=== PATIENT | female | born 1955 | race Caucasian/White ===

== ENCOUNTER 2017-02-22 12:51 | Observation (INO) ==
[2017-02-22] MEDS ORDERED: Furosemide 40 MG/4 ML VIAL IVP ONE (14:01)
--- NOTE | 2017-02-22 14:05 | Emergency Department Note ---
Disposition Clinical Impression: Swelling of lower extremity Congestive heart failure Qualifiers: Congestive heart failure type: unspecified congestive heart failure type Congestive heart failure chronicity: unspecified congestive heart failure chronicity Qualified Code(s): I50.9 - Heart failure, unspecified Disposition: Admitted As Inpatient Condition: Fair Time of Disposition: 16:21 General Adult HPI - General Chief complaint: ED Shortness of Breath/Dyspnea Stated complaint: bilat leg swelling and belly distention Time Seen by Provider: 02/22/17 13:16 Source: patient, family Mode of arrival: wheelchair Limitations: no limitations Nursing Notes Reviewed: Yes Vital Signs Reviewed: Yes - History of Present Illness HPI Narrative: 62-year-old female presents for evaluation of bilateral lower ext swelling. Patient states it her legs even swollen over the past several weeks. States she has been taking Lasix 40 mg daily as directed by primary care physician. This is the swelling has worsened and become more painful. Patient also noted some bilateral redness. Denies any fevers. Also has been having some intermittent chest pressure over the past 2-3 weeks. Seizures all spontaneously but does note it is nonexertional. Reports some shortness of breath due to abdominal distention. States she has been having about a 30 pound weight gain in the past 3 months. Also notes a history of fatty liver but denies any history of cirrhosis or liver disease. Reports that she is continuing to produce urine. Denies history of hypertension or cardiac disease. Denies history of heart attacks. Denies history of congestive heart failure. States that she typically is not very active. Denies history of any ultrasound of the heart. Pain Scale: 4 - Related Data Home Medications Medication Instructions Recorded Confirmed Baclofen 20 mg PO TID PRN 02/29/16 02/22/17 Dexlansoprazole [Dexilant] 60 mg PO DAILY 02/29/16 02/22/17 Furosemide [Lasix] 40 mg PO BID 02/29/16 02/22/17 Ibuprofen [Motrin] 600 mg PO Q6H PRN 02/29/16 02/22/17 Insulin Glargine,Hum.rec.anlog 70 unit SQ BID 02/29/16 02/22/17 [Lantus Solostar] Insulin LISPRO [Humalog Kwikpen 0 unit SQ TIDWM 02/29/16 02/22/17 U-100] Linagliptin/Metformin HCl 1 tab PO BID 02/29/16 02/22/17 [Jentadueto 2.5 mg-1000 mg Tab] Losartan Potassium [Cozaar] 50 mg PO DAILY 02/29/16 02/22/17 Multivitamin [Multi-Day Vitamins] 1 tab PO DAILY 02/29/16 02/22/17 Nystatin Cream [Mycostatin Cream] 1 appl TP BID PRN 02/29/16 02/22/17 Oxycodone HCl [Oxaydo] 5 mg PO TID 02/29/16 02/22/17 Potassium Chloride [K-Tab ER] 20 meq PO DAILY 02/29/16 02/22/17 diazePAM [Valium] 5 mg PO BID PRN 02/29/16 02/22/17 hydroCHLOROthiazide 25 mg PO DAILY 02/29/16 02/22/17 [Hydrochlorothiazide] Glucagon,Human Recombinant 1 mg IJ ONCE PRN 03/28/16 02/22/17 [Glucagon Emergency Kit] FLUoxetine HCl [PROzac] 20 mg PO DAILY 02/22/17 02/22/17 Lubiprostone [Amitiza] 8 mcg PO BID 02/22/17 02/22/17 Mecobal/Levomefolat Ca/B6 Phos 1 tab PO BID 02/22/17 02/22/17 [Foltanx Tablet] Modafinil [Provigil] 100 mg PO QAM 02/22/17 02/22/17 Morphine Sulfate SR (12 HR) [MS 30 mg PO QAM 02/22/17 02/22/17 Contin] Morphine Sulfate SR (12 HR) [MS 60 mg PO QPM 02/22/17 02/22/17 Contin] buPROPion HCl [Bupropion HCl ER] 200 mg PO DAILY 02/22/17 02/22/17 Allergies Allergy/AdvReac Type Severity Reaction Status Date / Time orange Allergy Hives Verified 02/29/16 19:08 Pineapple Allergy Hives Verified 02/29/16 19:08 Sulfa (Sulfonamide Allergy Rash Verified 02/29/16 18:57 Antibiotics) wheat Allergy Rash Verified 02/29/16 19:08 All systems ED: reviewed and negative except as stated. Constitutional: Reports: as per HPI. Denies: fever Eyes: Reports: as per HPI ENT ED: Reports: as per HPI Cardiovascular: Reports: as per HPI, chest pain Respiratory: Reports: as per HPI, dyspnea Gastrointestinal: Reports: as per HPI. Denies: nausea, vomiting Genitourinary: Reports: as per HPI Musculoskeletal: Reports: as per HPI Integumentary: Reports: as per HPI Neurological: Reports: as per HPI Psychiatric: Reports: as per HPI Endocrine: Reports: as per HPI Hematological/Lymphatic: Reports: as per HPI Past Medical History - Past Medical History Medical history: Reports: diabetes, other Psychiatric history: Reports: anxiety, depression - Social History Smoking Status: Current every day smoker Smokeless Tobacco Status: No Alcohol use: Reports: none Drug use: Reports: none Physical Exam - General Limitations: no limitations General appearance: alert, in no apparent distress, obese - Head Head exam: atraumatic, normocephalic, normal inspection - Eye Eye exam: Present: normal appearance - ENT ENT exam: normal exam - Neck Neck exam: Present: normal inspection - Chest Chest inspection: Present: normal inspection, symmetric chest wall rise - Respiratory Respiratory exam: Present: other (diffusely decreased breath sounds). Absent: respiratory distress - Cardiovascular Cardiovascular exam: Present: regular rate - Abdominal Exam Abdominal exam: Present: soft, Non-Tender, distention (No fluid wave). Absent: tenderness, guarding, rebound, rigidity - Extremities Exam Extremities exam: Present: other (Bilateral to 3+ pedal edema to the midshin with erythema and chronic skin changes) - Back Exam Back exam: Present: normal inspection - Neurological Exam Neurological exam: Present: alert, oriented X3 - Skin Skin exam: Present: warm, dry, intact, normal color Course Course Narrative: Patient seen and examined. Patient will get a cardiopulmonary evaluation. Patient will skip his clavicle and her liver function as well as kidney function. Patient is chest x-ray as well as EKG and troponin. Records review shows that the patient has not had a recent echo. Concerns to this patient's more frequent developing of anginal symptoms and worsening lower leg edema. Patient would likely benefit from inpatient monitoring echo and diuresis. - Reevaluation(s) Reevaluation #1: Patient seen and examined. Patient updated on plan of care. Patient agrees with plan of care. Time: 14:59 Reevaluation #2: Patient's d-dimer was elevated. Will get CT of the chest. Patient is aware of the plan of care. Time: 15:42 Vital Signs Temperature 98.2 F 02/22/17 12:59 Pulse Rate 98 02/22/17 12:59 Respiratory Rate 18 02/22/17 12:59 Blood Pressure 171/73 02/22/17 12:59 O2 Sat by Pulse Oximetry 96 02/22/17 12:59 Temperature 98.2 F 02/22/17 12:59 Pulse Rate 98 02/22/17 12:59 Respiratory Rate 18 02/22/17 12:59 Blood Pressure 171/73 02/22/17 12:59 O2 Sat by Pulse Oximetry 96 02/22/17 12:59 Oxygen Delivery Oxygen Delivery Room Air Medical Decision Making - MDM Narrative Medical decision making narrative: 62-year-old female patient for violation of bilateral LOWER ext swelling. Patient states that her legs been more swollen. Patient only takes Lasix 3 mg daily to help control swelling. No diagnosis of congestive heart failure. Patient secondarily has been having some intermittent chest symptoms and chest pain over the past several weeks. Notes to occur nonexertional describes as a pressure. States that it was all spontaneously after a few minutes. Patient denies history of heart attacks. On exam the patient's abdomen appeared to be distended without a fluid wave. Patient did have pitting edema bilaterally with redness this is less likely bilateral cellulitis. Likely pain related to the increased pressure related to the edema in her lower legs. Patient's troponin was negative. Patient's BNP was also negative however given the chest x-ray findings and the patient's clinical exam she would benefit from further cardiopulmonary monitoring with echo, stress test, fluid diuresis. Patient did have an elevated d-dimer which prompted the CT of the chest did not show PE. Patient is agreeable with this plan of care. - Lab Data Lab results reviewed: Yes I reviewed the patient's lab results. Result diagrams: 02/22/17 14:09 02/22/17 14:09 Lab Results 02/22/17 02/22/17 02/22/17 Range/Units 14:09 14:09 14:09 WBC 7.7 (4.3-11.1) K/mcL RBC 4.16 (3.82-4.97) M/mcL Hgb 11.8 (11.5-15.4) g/dL Hct 36.8 (35.3-44.9) % MCV 88.5 (83.0-100.0) fL MCH 28.4 (28.0-33.3) pg MCHC 32.1 (31.6-35.5) g/dL RDW 16.2 H (11.5-14.5) % Plt Count 301 (140-400) K/mcL MPV 10.0 (9.4-12.4) fL Immature Gran % 1.6 (0-4) % Seg Neutrophils % 68.7 % Lymphocytes % 11.3 % Monocytes % 13.8 % Eosinophils % 3.8 % Basophils % 0.8 % Neutrophils # 5.3 (1.6-8.9) K/mcL Lymphocytes # 0.9 (0.6-4.6) K/mcL Monocytes # 1.1 (0.0-1.3) K/mcL Eosinophils # 0.3 (0.0-0.6) K/mcL Basophils # 0.1 (0.0-0.2) K/mcL PT 14.8 H (9.4-12.1) Seconds INR 1.4 D-Dimer 2201 H (0-500) ng/mLFEU Sodium 138 (136-145) mEq/L Potassium 4.0 (3.5-4.5) mEq/L Chloride 94 L (98-109) mEq/L Carbon Dioxide 35 H (19-29) mEq/L BUN 19 (7-20) mg/dL Creatinine 0.74 (0.57-1.11) mg/dL Est GFR ( Amer) > 60 (> 60) Est GFR (Non-Af Amer) > 60 (> 60) BUN/Creatinine Ratio 26 (6-26) Glucose 78 (70-99) mg/dL Calculated Osmolality 287 (280-300) Calcium 10.3 (8.6-10.8) mg/dL Total Bilirubin 0.6 (0.2-1.2) mg/dL Direct Bilirubin 0.3 (0.0-0.5) mg/dL Indirect Bilirubin 0.3 (0.0-1.2) mg/dL AST 51 H (5-34) Units/L ALT 58 H (0-55) Units/L Alkaline Phosphatase 168 H (38-126) Units/L Troponin I (0-0.03) ng/mL B-Natriuretic Peptide (0-100) pg/mL Serum Total Protein 8.0 (6.0-8.3) g/dL Albumin 3.3 L (3.5-5.0) g/dL Globulin 4.7 H (2.4-3.5) g/dL Albumin/Globulin Ratio 0.7 L (1.1-2.2) 02/22/17 02/22/17 Range/Units 14:09 14:09 WBC (4.3-11.1) K/mcL RBC (3.82-4.97) M/mcL Hgb (11.5-15.4) g/dL Hct (35.3-44.9) % MCV (83.0-100.0) fL MCH (28.0-33.3) pg MCHC (31.6-35.5) g/dL RDW (11.5-14.5) % Plt Count (140-400) K/mcL MPV (9.4-12.4) fL Immature Gran % (0-4) % Seg Neutrophils % % Lymphocytes % % Monocytes % % Eosinophils % % Basophils % % Neutrophils # (1.6-8.9) K/mcL Lymphocytes # (0.6-4.6) K/mcL Monocytes # (0.0-1.3) K/mcL Eosinophils # (0.0-0.6) K/mcL Basophils # (0.0-0.2) K/mcL PT (9.4-12.1) Seconds INR D-Dimer (0-500) ng/mLFEU Sodium (136-145) mEq/L Potassium (3.5-4.5) mEq/L Chloride (98-109) mEq/L Carbon Dioxide (19-29) mEq/L BUN (7-20) mg/dL Creatinine (0.57-1.11) mg/dL Est GFR ( Amer) (> 60) Est GFR (Non-Af Amer) (> 60) BUN/Creatinine Ratio (6-26) Glucose (70-99) mg/dL Calculated Osmolality (280-300) Calcium (8.6-10.8) mg/dL Total Bilirubin (0.2-1.2) mg/dL Direct Bilirubin (0.0-0.5) mg/dL Indirect Bilirubin (0.0-1.2) mg/dL AST (5-34) Units/L ALT (0-55) Units/L Alkaline Phosphatase (38-126) Units/L Troponin I 0.00 (0-0.03) ng/mL B-Natriuretic Peptide < 10 (0-100) pg/mL Serum Total Protein (6.0-8.3) g/dL Albumin (3.5-5.0) g/dL Globulin (2.4-3.5) g/dL Albumin/Globulin Ratio (1.1-2.2) - Radiology Data Radiology results reviewed: Yes I reviewed the patient's radiology results. Chest X-Ray 02/22/17 14:02 IMPRESSION: Findings suggest congestive heart failure D/ / Scott Maravilla MD / Scott Maravilla MD Interpreting Provider: Scott Maravilla MD - EKG Data EKG #1 EKG shows normal: sinus rhythm Rate: normal Rhythm: NSR [place]/QRS: left axis deviation Q waves: III, aVF, v1 Interpretation: no acute changes, unchanged when compared to prior tracing (date ) S.B.ALaver[place] - [email or web address] Situation: Demographics Background: Presenting Complaint Assessment: Vital Signs, Course and respsone to treatment, Patient/Family Expectation Recommendation: Barrier(s) to disposition, Recommendation based on pending studies, treatments, or consults S.B.AL[place] Report Given to: Dr. Corey Padilla Repor Time: 15:18
[2017-02-22 14:19] LABS: Basophils # 0.1 K/mcL (0.0-0.2); Basophils % 0.8 %; Eosinophils # 0.3 K/mcL (0.0-0.6); Eosinophils % 3.8 %; Hematocrit 36.8 % (35.3-44.9); Hemoglobin 11.8 g/dL (11.5-15.4); Immature Granulocytes % 1.6 % (0-4); Lymphocytes # 0.9 K/mcL (0.6-4.6); Lymphocytes % 11.3 %; Mean Corpuscular HGB Conc 32.1 g/dL (31.6-35.5); Mean Corpuscular Hemoglobin 28.4 pg (28.0-33.3); Mean Corpuscular Volume 88.5 fL (83.0-100.0); Monocytes # 1.1 K/mcL (0.0-1.3); Monocytes % 13.8 %; Neutrophils # 5.3 K/mcL (1.6-8.9); Platelet Count 301 K/mcL (140-400); Red Blood Count 4.16 M/mcL (3.82-4.97); Red Cell Distribution Width 16.2 % (11.5-14.5); Segmented Neutrophils % 68.7 %
[2017-02-22 14:25] LABS: INR 1.4; Prothrombin Time 14.8 Seconds (9.4-12.1)
[2017-02-22 14:35] LABS: Alanine Aminotransferase 58 Units/L (0-55); Albumin 3.3 g/dL (3.5-5.0); Albumin/Globulin Ratio 0.7 (1.1-2.2); Alkaline Phosphatase 168 Units/L (38-126); Aspartate Amino Transferase 51 Units/L (5-34); BUN/Creatinine Ratio 26 (6-26); Bilirubin,Direct 0.3 mg/dL (0.0-0.5); Bilirubin,Indirect 0.3 mg/dL (0.0-1.2); Bilirubin,Total 0.6 mg/dL (0.2-1.2); Blood Urea Nitrogen 19 mg/dL (7-20); Calcium 10.3 mg/dL (8.6-10.8); Carbon Dioxide 35 mEq/L (19-29); Chloride 94 mEq/L (98-109); Globulin 4.7 g/dL (2.4-3.5); Glucose 78 mg/dL (70-99); Osmolality,Calculated 287 (280-300); Sodium 138 mEq/L (136-145); eGFR For African Americans > 60 (> 60); eGFR For Non-African Americans > 60 (> 60)
--- NOTE | 2017-02-22 15:07 | Emergency Department Note ---
START Narrative - START START: I examined this patient and my medical decision-making was reviewed with the VARIETY LATHE OPERATOR/PA/Advanced Practice Nurse/Resident Physician. I agree with the documented findings, disposition and treatment plan as described except to the extent set forth below. ED attending: Patient's emergency medicine resident Dr. Miller. Please see copy of this note for H&P evaluation and management and ED disposition. We both had independent [id number] time in contact with this patient. Briefly: 62 year old female history of one year dependent edema on escalating doses of Lasix presents with 2 weeks increasing chest discomfort and dyspnea on exertion and increased swelling and erythema of her legs. Symmetrical redness no Lexmark consistent with venous stasis. Patient is getting troponin and chest x-ray. Heart scores above 3. We decided admission would be warranted. Patient is comfortable with this. Disposition pending although an admission anticipated.
[2017-02-22] MEDS ORDERED: Ondansetron ODT 4 MG TAB.RAPDIS SL PRN (17:06)
[2017-02-22] MEDS ORDERED: Naloxone 0.4 MG/ML INJ IVP PRN (17:06)
[2017-02-22] MEDS ORDERED: Acetaminophen 325 MG TABLET PO PRN (17:06)
[2017-02-22] MEDS ORDERED: diazePAM 5 MG TABLET PO PRN (17:12)
[2017-02-22] MEDS ORDERED: *HR* Dextrose 50 % in Water (Syg) 50 ML SYRINGE IVP PRN (17:19)
[2017-02-22] MEDS ORDERED: Dextrose Gel 15 GM PO PRN ×2 (17:19)
[2017-02-22] MEDS ORDERED: D5% in Water 1,000 ML IVC PRN (17:19)
--- NOTE | 2017-02-22 17:21 | Internal Med History&Physical ---
Date of Encounter: 02/22/17 Time of Encounter: 17:18 Assessment and Plan (1) Congestive heart failure Current visit: Yes Status: Acute Patient with increasing swelling of BLE as well as shortness of breath worse with activity and when laying flat over the last several days. CXR shows findings suggesting CHF. BNP negative at < 10. EKG shows no acute changes. Patient takes 40mg of lasix PO at home. Continuous cardiac exercise physiologist daily weights strict I/Os Lasix 40mg IVP BID echocardiogram. Qualifiers: Congestive heart failure type: unspecified congestive heart failure type Congestive heart failure chronicity: acute Qualified Code(s): I50.9 - Heart failure, unspecified (2) Abdominal distension Current visit: Yes Status: Acute Patient with significant abdominal distention, she feels this is contributing to her shortness of breath and poor appetite. She denies any abdominal pain vomiting or diarrhea. She reports she is having regular bowel movements. On exam, abdomen is significantly firm and distended with normal bowel sounds and is non-tender to palpation. Distention may be due to edema from CHF exacerbation, but CTA of chest noted upper abdominal lymphadenopathy. Will get complete ultrasound of the abdomen to further evaluate. (3) Type 2 diabetes mellitus Current visit: Yes Status: Acute check Hgb A1c diabetic, heart healthy diet. Patient reports she has a poor appetite lately and blood sugar on presentation only 78. Will reduce basal dose of insulin to 55u BID (takes 70u BID at home) check blood sugars ACHS Sliding Scale correction dose ACHS hypoglycemic protocol. Qualifiers: Diabetes mellitus complication status: with unspecified complications Diabetes mellitus half-way insulin use: with half-way use Qualified Code(s) : E11.8 - Type 2 diabetes mellitus with unspecified complications; Z79.4 - FDC (current) use of insulin (4) Hypertension Current visit: Yes Status: Acute Continue home doses of HCTZ and losartan. Qualifiers: Hypertension type: essential hypertension Qualified Code(s): I10 - Essential (primary) hypertension (5) Swelling of lower extremity Current visit: Yes Status: Acute BLE swelling with redness. D-dimer elevated to 2201, CTA negative for PE, will get BLE dopplers to rule out DVT. (6) DVT prophylaxis Current visit: Yes Status: Acute Lovenox 40mg SQ daily Internal Medicine - H&P: HPI Chief complaint: BLE swelling, intermittent chest pressure Admitted From: Emergency Dept Plans for Post Hospital Care: Home History of present illness: Ms. Welch is a 62 year old female with hypertension, type 2 diabetes, GERD, chronic back pain, fatty liver disease, who presented to the emergency department today with complaints of increasing bilateral lower extremity swelling, redness, shortness of breath, and intermittent chest pressure. Patient reports that she has had swelling in her bilateral lower extremities for some time now, but has noted it getting worse over the last several days. She reports her abdomen has become significantly distended, causing shortness of breath, and poor appetite. She does report that she is having regular bowel movements, and denies any nausea or vomiting or abdominal pain. She describes the chest pressure as occurring about once a week, at rest, lasting for approximately 5 minutes, in the middle of her chest radiating up to her jaw. She denies any headache, palpitations, cough, fever, dysuria. Evaluation in the emergency department included a chest x-ray which showed findings suggestive of congestive heart failure. EKG showed normal sinus rhythm with no acute changes, troponin was negative at 0.00, BNP was negative at less than 10, however patient is obese and this is perhaps unreliable, d-dimer is elevated at 2201. CTA was obtained due to the elevated d-dimer and it showed no pulmonary embolism and no acute cardiopulmonary disease. On exam, patient alert and oriented, in no acute distress. Heart has regular rate and rhythm, lungs with mild crackles in bilateral bases. Abdomen is firm and distended, with positive bowel sounds in all 4 quadrants, nontender to palpation. Bilateral lower extremities with +4 pitting edema, erythema to mid calf, nontender. Past Med Surg Social Fam HX - Past Medical History Medical history: diabetes, other Psychiatric history: anxiety, depression - Past Surgical History Surgical History: cholecystectomy, orthopedic, other (lumbar laminectomy, carpal tunnel, trigger finger, ) - Social History Smoking Status: Current every day smoker Smokeless Tobacco Status: No Alcohol use: none Drug use: none - Family History Sister Living Status: Cause of : cancer Hx Family Cancer: Yes Mother Living Status: Cause of : Lung cancer Hx Family Cancer: Yes Father Hx Family Cancer: Yes (prostate) Internal Medicine - H&P: Meds Baclofen 20 mg PO TID PRN 02/29/16 [History] Dexlansoprazole [Dexilant] 60 mg PO DAILY 02/29/16 [History] Furosemide [Lasix] 40 mg PO BID 02/29/16 [History] Ibuprofen [Motrin] 600 mg PO Q6H PRN 02/29/16 [History] Insulin Glargine,Hum.rec.anlog [Lantus Solostar] 70 unit SQ BID 02/29/16 [ History] Insulin LISPRO [Humalog Kwikpen U-100] 0 unit SQ TIDWM 02/29/16 [History] Linagliptin/Metformin HCl [Jentadueto 2.5 mg-1000 mg Tab] 1 tab PO BID 02/29/16 [History] Losartan Potassium [Cozaar] 50 mg PO DAILY 02/29/16 [History] Multivitamin [Multi-Day Vitamins] 1 tab PO DAILY 02/29/16 [History] Nystatin Cream [Mycostatin Cream] 1 appl TP BID PRN 02/29/16 [History] Oxycodone HCl [Oxaydo] 5 mg PO TID 02/29/16 [History] Potassium Chloride [K-Tab ER] 20 meq PO DAILY 02/29/16 [History] diazePAM [Valium] 5 mg PO BID PRN 02/29/16 [History] hydroCHLOROthiazide [Hydrochlorothiazide] 25 mg PO DAILY 02/29/16 [History] Glucagon,Human Recombinant [Glucagon Emergency Kit] 1 mg IJ ONCE PRN 03/28/16 [ History] FLUoxetine HCl [PROzac] 20 mg PO DAILY 02/22/17 [History] Lubiprostone [Amitiza] 8 mcg PO BID 02/22/17 [History] Mecobal/Levomefolat Ca/B6 Phos [Foltanx Tablet] 1 tab PO BID 02/22/17 [History] Modafinil [Provigil] 100 mg PO QAM 02/22/17 [History] Morphine Sulfate SR (12 HR) [MS Contin] 30 mg PO QAM 02/22/17 [History] Morphine Sulfate SR (12 HR) [MS Contin] 60 mg PO QPM 02/22/17 [History] buPROPion HCl [Bupropion HCl ER] 200 mg PO DAILY 02/22/17 [History] Allergies orange Allergy (Verified 02/29/16 19:08) Hives Pineapple Allergy (Verified 02/29/16 19:08) Hives Sulfa (Sulfonamide Antibiotics) Allergy (Verified 02/29/16 18:57) Rash wheat Allergy (Verified 02/29/16 19:08) Rash All Systems PM: A 10-system review of systems was performed and is negative for pertinent findings except as documented above in the HPI. - Constitutional Constitutional: anorexia, no chills, no fever(s), no night sweats - EENT Eyes: no change in vision, no discharge, no pain, no photophobia Ears: no ear discharge, no ear pain, no tinnitus Nose, mouth and throat: no dysphagia, no nasal discharge, no neck pain, no sore throat - Cardiovascular Cardiovascular ROS IM: chest pain, dyspnea, dyspnea on exertion, no diaphoresis , no lightheadedness, no palpitations, no syncope - Respiratory Respiratory: dyspnea, dyspnea on exertion, no cough, no wheezing, no excessive phlegm production - Gastrointestinal Gastrointestinal: bloating, early satiety, no abdominal pain, no diarrhea, no hematemesis, no hematochezia, no melena, no nausea, no vomiting - Genitourinary Genitourinary: no change in urinary stream, no dysuria, no flank pain, no hematuria - Musculoskeletal Musculoskeletal ROS IM: no numbness, no tingling - Integumentary Integumentary IM: no rash, no unusual bruising - Neurological Neurological ROS: no confusion, no convulsions, no focal weakness, no numbness, no tingling, no tremor(s) - Hematologic/Lymphatic Hematologic/Lymphatic: no easy bruising - Constitutional Vitals: Temp Pulse Resp BP Pulse Ox 98.2 F 97 18 150/84 96 02/22/17 12:59 02/22/17 15:04 02/22/17 17:01 02/22/17 17:01 02/22/17 15:04 General appearance: Present: A&O X 3, morbidly obese, pleasant, no acute distress - Head Head exam: Present: atraumatic, normocephalic - Eye Eye exam: Present: PERRL, conjuntiva pink, sclera anicteric Pupils: Present: PERRL - Neck Neck exam general surgery: Present: supple, trachea midline. Absent: lymphadenopathy - Respiratory Respiratory exam: Present: rales. Absent: accessory muscle use, rhonchi, wheezes - Cardiovascular Cardiovascular exam: Present: RRR, +S1, +S2. Absent: diastolic murmur, gallop, rubs, systolic murmur - GI/Abdominal GI/Abdominal exam: Present: distended, firm, normal bowel sounds, soft, no peritoneal signs. Absent: guarding, tenderness - Extremities Exam Extremities exam: Present: pedal edema (+4 pitting edema in BLE), warm, radial pulses palpable and symetrical. Absent: calf tenderness, cyanotic - Neurological Exam Neurological exam: Present: CN II-XII intact, oriented X3, no focal deficits. Absent: facial droop, speech deficit - Skin Skin exam: Present: dry, erythema (BLE), intact Internal Med - H&P Results - Labs CBC & Chem 7: 02/22/17 14:09 02/22/17 14:09 Labs: All Lab Results (24 Hours) 02/22/17 02/22/17 02/22/17 Range/Units 14:09 14:09 14:09 WBC 7.7 (4.3-11.1) K/mcL RBC 4.16 (3.82-4.97) M/mcL Hgb 11.8 (11.5-15.4) g/dL Hct 36.8 (35.3-44.9) % MCV 88.5 (83.0-100.0) fL MCH 28.4 (28.0-33.3) pg MCHC 32.1 (31.6-35.5) g/dL RDW 16.2 H (11.5-14.5) % Plt Count 301 (140-400) K/mcL MPV 10.0 (9.4-12.4) fL Immature Gran % 1.6 (0-4) % Seg Neutrophils % 68.7 % Lymphocytes % 11.3 % Monocytes % 13.8 % Eosinophils % 3.8 % Basophils % 0.8 % Neutrophils # 5.3 (1.6-8.9) K/mcL Lymphocytes # 0.9 (0.6-4.6) K/mcL Monocytes # 1.1 (0.0-1.3) K/mcL Eosinophils # 0.3 (0.0-0.6) K/mcL Basophils # 0.1 (0.0-0.2) K/mcL PT 14.8 H (9.4-12.1) Seconds INR 1.4 D-Dimer 2201 H (0-500) ng/mLFEU Sodium 138 (136-145) mEq/L Potassium 4.0 (3.5-4.5) mEq/L Chloride 94 L (98-109) mEq/L Carbon Dioxide 35 H (19-29) mEq/L BUN 19 (7-20) mg/dL Creatinine 0.74 (0.57-1.11) mg/dL Est GFR ( Amer) > 60 (> 60) Est GFR (Non-Af Amer) > 60 (> 60) BUN/Creatinine Ratio 26 (6-26) Glucose 78 (70-99) mg/dL Calculated Osmolality 287 (280-300) Calcium 10.3 (8.6-10.8) mg/dL Total Bilirubin 0.6 (0.2-1.2) mg/dL Direct Bilirubin 0.3 (0.0-0.5) mg/dL Indirect Bilirubin 0.3 (0.0-1.2) mg/dL AST 51 H (5-34) Units/L ALT 58 H (0-55) Units/L Alkaline Phosphatase 168 H (38-126) Units/L Troponin I (0-0.03) ng/mL B-Natriuretic Peptide (0-100) pg/mL Serum Total Protein 8.0 (6.0-8.3) g/dL Albumin 3.3 L (3.5-5.0) g/dL Globulin 4.7 H (2.4-3.5) g/dL Albumin/Globulin Ratio 0.7 L (1.1-2.2) 02/22/17 02/22/17 Range/Units 14:09 14:09 WBC (4.3-11.1) K/mcL RBC (3.82-4.97) M/mcL Hgb (11.5-15.4) g/dL Hct (35.3-44.9) % MCV (83.0-100.0) fL MCH (28.0-33.3) pg MCHC (31.6-35.5) g/dL RDW (11.5-14.5) % Plt Count (140-400) K/mcL MPV (9.4-12.4) fL Immature Gran % (0-4) % Seg Neutrophils % % Lymphocytes % % Monocytes % % Eosinophils % % Basophils % % Neutrophils # (1.6-8.9) K/mcL Lymphocytes # (0.6-4.6) K/mcL Monocytes # (0.0-1.3) K/mcL Eosinophils # (0.0-0.6) K/mcL Basophils # (0.0-0.2) K/mcL PT (9.4-12.1) Seconds INR D-Dimer (0-500) ng/mLFEU Sodium (136-145) mEq/L Potassium (3.5-4.5) mEq/L Chloride (98-109) mEq/L Carbon Dioxide (19-29) mEq/L BUN (7-20) mg/dL Creatinine (0.57-1.11) mg/dL Est GFR ( Amer) (> 60) Est GFR (Non-Af Amer) (> 60) BUN/Creatinine Ratio (6-26) Glucose (70-99) mg/dL Calculated Osmolality (280-300) Calcium (8.6-10.8) mg/dL Total Bilirubin (0.2-1.2) mg/dL Direct Bilirubin (0.0-0.5) mg/dL Indirect Bilirubin (0.0-1.2) mg/dL AST (5-34) Units/L ALT (0-55) Units/L Alkaline Phosphatase (38-126) Units/L Troponin I 0.00 (0-0.03) ng/mL B-Natriuretic Peptide < 10 (0-100) pg/mL Serum Total Protein (6.0-8.3) g/dL Albumin (3.5-5.0) g/dL Globulin (2.4-3.5) g/dL Albumin/Globulin Ratio (1.1-2.2) - Diagnostic Studies Chest x-ray Additional comments: Chest X-Ray 02/22/17 14:02 IMPRESSION: Findings suggest congestive heart failure D/ / Scott Maravilla MD / Scott Maravilla MD Interpreting Provider: Scott Maravilla MD CT scan - chest Additional comments: Chest CTA 02/22/17 15:40 IMPRESSION: 1. No pulmonary embolus. 2. No acute cardiopulmonary disease. 3. Right base scarring with elevation of the right hemidiaphragm. 4. Prominent upper abdominal lymph nodes, partially visualized. D/ / 02/22/2017 16:14:22 Betina Bell MD / yusra Interpreting Provider: Betina Bell MD
[2017-02-22] MEDS ORDERED: *HR* Morphine Sulfate SR (12 HR) 30 MG TABLET.ER PO SCH (18:00)
[2017-02-22 18:07] LABS: Hemoglobin A1C 7.3 %
[2017-02-22] MEDS ORDERED: Insulin LISPRO 300 UNITS/3 ML VIAL SQ SCH (21:00)
[2017-02-22] MEDS: Furosemide 40 MG/4 ML VIAL IVP SCH (21:08)
[2017-02-22] MEDS: *HR* Morphine Sulfate SR (12 HR) 30 MG TABLET.ER PO SCH (21:10)
[2017-02-22] MEDS: Baclofen 10 MG TABLET PO PRN (21:11)
[2017-02-22] MEDS: Insulin DETEMIR 100 UNIT/ML X5UNITS SQ SCH (21:12)
[2017-02-22] MEDS: (Lubiprostone [Amitiza] 8 MCG) PO SCH (21:16)
[2017-02-23] MEDS: *HR* OxyCODONE Immed Rel 5 MG TABLET PO SCH ×5 (00:04→21:03)
[2017-02-23 01:58] LABS: Basophils # 0.1 K/mcL (0.0-0.2); Basophils % 0.6 %; Eosinophils # 0.4 K/mcL (0.0-0.6); Eosinophils % 3.2 %; Hemoglobin 12.2 g/dL (11.5-15.4); Immature Granulocytes % 1.7 % (0-4); Lymphocytes # 1.2 K/mcL (0.6-4.6); Lymphocytes % 10.9 %; Mean Corpuscular HGB Conc 31.3 g/dL (31.6-35.5); Mean Corpuscular Volume 89.7 fL (83.0-100.0); Mean Platelet Volume 10.5 fL (9.4-12.4); Monocytes # 1.1 K/mcL (0.0-1.3); Monocytes % 9.6 %; Neutrophils # 8.4 K/mcL (1.6-8.9); Platelet Count 338 K/mcL (140-400); Red Blood Count 4.35 M/mcL (3.82-4.97); Red Cell Distribution Width 16.2 % (11.5-14.5)
[2017-02-23 02:16] LABS: BUN/Creatinine Ratio 23 (6-26); Blood Urea Nitrogen 20 mg/dL (7-20); Calcium 10.3 mg/dL (8.6-10.8); Carbon Dioxide 36 mEq/L (19-29); Chloride 91 mEq/L (98-109); Cholesterol 156 mg/dL (< 200); Glucose 295 mg/dL (70-99); HDL Cholesterol 26 mg/dL (40-59); LDL Cholesterol,Calculated 99 mg/dL (0-99); Osmolality,Calculated 298 (280-300); Sodium 137 mEq/L (136-145); Triglycerides 157 mg/dL (< 150); eGFR For African Americans > 60 (> 60); eGFR For Non-African Americans > 60 (> 60)
[2017-02-23] MEDS: Insulin LISPRO 300 UNITS/3 ML VIAL SQ SCH ×4 (09:01→19:33)
[2017-02-23] MEDS: (Dexlansoprazole [Dexilant] 60 MG) PO SCH (09:31)
[2017-02-23] MEDS: (Lubiprostone [Amitiza] 8 MCG) PO SCH ×2 (09:32→21:04)
[2017-02-23] MEDS: Furosemide 40 MG/4 ML VIAL IVP SCH ×2 (09:36→17:23)
[2017-02-23] MEDS: Insulin DETEMIR 100 UNIT/ML X5UNITS SQ SCH (09:37)
[2017-02-23] MEDS: hydroCHLOROthiazide 25 MG TABLET PO SCH (09:37)
[2017-02-23] MEDS: BuPROPion SR (12 HR) 100 MG TABLET PO SCH (09:37)
[2017-02-23] MEDS: *HR* Morphine Sulfate SR (12 HR) 30 MG TABLET.ER PO SCH ×2 (09:37→21:03)
--- NOTE | 2017-02-23 17:16 | Venous Imaging Report ---
LE Venous Duplex Patient Name:Mima Welch Order Number:[id number] Procedure Date:02/23/2017 Date:1955ge:62 yrs Gender:Female Location:[facility] Room #: 3B21 Admitted Attorneys:Lisa Kyle MD:Ciarra Negron CNP perfume maker:Kaz Merritt DO Reading MD:Miguel Angel Nogueira MD Study Quality:Technically Difficult Primary Indications:Swelling and erythema of bilateral lower extremities Secondary Indications: Risk Factors Yes/No Hypertension Diabetes Smoking Current Impressions: Normal bilateral lower extremity deep and superficial venous exam. Recommendations: After imaging the patient returned to their room. Test completed on 02/23/2017 at 11:21:03 am. Findings Prior Study: No prior study available for comparison. Lower Extremity Venous Duplex Side Vein Compress Spontaneous Flow Augment Diameter (cm) Depth (cm) Right Distal Iliac Normal Yes Phasic Yes Right Common Femoral Normal Yes Phasic Yes Right Superficial Femoral Normal Yes Phasic Yes Right Popliteal Normal Yes Phasic Yes Right Posterior Tibial Normal Yes Phasic Yes Right Peroneal Normal Yes Phasic Yes Right Saphenofemoral Junction Normal Yes Phasic Yes Right Great Saphenous Normal Yes Phasic Yes Right Lesser Saphenous Normal Yes Phasic Yes Left Distal Iliac Normal Yes Phasic Yes Left Common Femoral Normal Yes Phasic Yes Left Superficial Femoral Normal Yes Phasic Yes Left Popliteal Normal Yes Phasic Yes Left Posterior Tibial Normal Yes Phasic Yes Left Peroneal Normal Yes Phasic Yes Left Saphenofemoral [place] Normal Yes Phasic Yes Left Great Saphenous Normal Yes Phasic Yes Left Lesser Saphenous Normal Yes Phasic Yes Updated by Miguel Angel Nogueira MD on 02/23/2017 5:09:08 PM electronically signed on 02/23/2017 5:09:28 PM with status of Final
--- NOTE | 2017-02-23 17:35 | Internal Med Progress Note ---
Date of Encounter: 02/23/17 Time of Encounter: 12:30 - Assessment and plan (1) Abdominal distension Current Visit: Yes Status: Acute Assessment and plan: Because of her abdominal distention at this time appears to be related to severe constipation. No ascites identified on imaging. Large amount of stool present on abdominal CT. Patient also had bilateral renal cysts which she states are chronic and she has been told that they are benign. Regarding her diastolic heart failure, she states that her current pedal edema slightly improved from her baseline and it does not appear as if this is an acute exacerbation. Will treat for constipation and monitor. Of note, she is on a lot of narcotic medications and is only on Amitiza for her bowel regimen which is completely ineffective for her. Will increase her bowel regimen and have her follow up outpatient with GI. ITS Impressions Chest X-Ray 02/22/17 14:02 IMPRESSION: Findings suggest congestive heart failure D/ / Scott Maravilla MD / Scott Maravilla MD Interpreting Provider: Scott Maravilla MD Chest CTA 02/22/17 15:40 IMPRESSION: 1. No pulmonary embolus. 2. No acute cardiopulmonary disease. 3. Right base scarring with elevation of the right hemidiaphragm. 4. Prominent upper abdominal lymph nodes, partially visualized. D/ / 02/22/2017 16:14:22 Betina Bell MD / yusra Interpreting Provider: Betina Bell MD Abdomen Ultrasound 02/22/17 18:30 IMPRESSION: 1. No ascites identified. D/ / Dallin Tabor MD / Dallin Tabor MD Interpreting Provider: Dallin Tbaor MD Abdomen/Pelvis CT 02/23/17 08:00 IMPRESSION: 1. Left renal cystic lesion with possible solid component. Recommend contrast enhanced CT to further evaluate this finding 2. Large amount of stool throughout the colon should be correlated with any history of constipation. D/ / Dagoberto Thomason MD / Dagoberto Thomason MD Interpreting Provider: Dagoberto Thomason MD Lower extremity venous duplex impressions: Normal bilateral lower extremity deep and superficial venous exam. (2) Congestive heart failure Current Visit: Yes Status: Acute Assessment and plan: Acute on chronic diastolic heart failure. Echocardiogram revealing ejection fraction of 65% with moderate diastolic dysfunction. She is on diuretics at home. While she has abdominal distention and lower extremity edema, she appears euvolemic on examination and consistent with her baseline. She has 2+ pitting edema but she states this is normal for her and is actually improved from her baseline. Her abdominal distention has been worked up and suspected is secondary to severe constipation. Echocardiogram impressions: LVEF 65%. Normal LV chamber size, wall thickness and function. Moderate left ventricular diastolic dysfunction. Grossly normal right ventricular structure and function. No evidence of pulmonary hypertension identified. No significant family dysfunction. Qualifiers: Congestive heart failure type: diastolic Congestive heart failure chronicity: acute on chronic Qualified Code(s): I50.33 - Acute on chronic diastolic (congestive) heart failure (3) Swelling of lower extremity Current Visit: Yes Status: Chronic Assessment and plan: Acute on chronic. Currently with 2+ pitting edema bilaterally. Patient family state that this is improved from her baseline and states it typically by the end of the day, her swelling to her lower legs becomes severe every night. We will continue to diurese and monitor. (4) Constipation Current Visit: Yes Status: Acute Assessment and plan: Acute on chronic and likely secondary to large amount of pain medication. She is on Amitiza, but this does not work for her. Patient states that she has to do with chronic, severe constipation and has to use enemas frequently at home. We will change her by mouth bowel regimen have a follow-up outpatient with GI. Of note, GI unavailable for consultation due to provider unavailability. Qualifiers: Constipation type: drug induced constipation Qualified Code(s): K59.03 - Drug induced constipation (5) Chronic pain Current Visit: Yes Status: Chronic Assessment and plan: Home pain meds continued. Pain is currently controlled. (6) Tobacco abuse Current Visit: Yes Status: Chronic Assessment and plan: Declines counseling at this time, nicotine patch. (7) Type 2 diabetes mellitus Current Visit: Yes Status: Chronic Assessment and plan: Despite having a good A1c of 7.3%, her glucose is not well controlled. She fluctuates between hypoglycemia and hyperglycemia. She has had several hypoglycemic episodes at home though none recently. Earlier today, her glucose decreased to 42 despite her long-acting insulin being at a lower dose than her home dose. Current glucose is around 300 however. We will continue to monitor closely and adjust insulin basal and sliding scale as needed. Right now, her by mouth intake is poor given her abdominal distention and feeling of satiety. Qualifiers: Diabetes mellitus complication status: with unspecified complications Diabetes mellitus shelter insulin use: with shelter use Qualified Code(s) : E11.8 - Type 2 diabetes mellitus with unspecified complications; Z79.4 - truck terminal manager (current) use of insulin (8) Hypertension Current Visit: Yes Status: Chronic Assessment and plan: Controlled, will continue to monitor Qualifiers: Hypertension type: essential hypertension Qualified Code(s): I10 - Essential (primary) hypertension (9) DVT prophylaxis Current Visit: Yes Status: Acute Assessment and plan: Subcutaneous Lovenox ordered (10) Morbid obesity with BMI of 40.0-44.9, adult Current Visit: Yes Status: Chronic - Subjective Interval history: Patient seen and examined. On examination, patient sitting upright in bed conversing with her daughter. Patient complaining of fullness in her abdomen as well as mild shortness of breath. - Constitutional Vitals: Temp Pulse Resp BP Pulse Ox 97.5 F L 97 19 125/66 94 02/23/17 15:18 02/23/17 15:18 02/23/17 15:18 02/23/17 15:18 02/23/17 15:18 General appearance: Present: A&O X 3, morbidly obese, pleasant, no acute distress, answers questions appropriately - Head Head exam: Present: atraumatic, normocephalic - Eye Eye exam: Present: PERRL, conjuntiva pink, sclera anicteric Pupils: Present: PERRL - Neck Neck exam general surgery: Present: supple, trachea midline. Absent: lymphadenopathy - Respiratory Respiratory exam: Present: decreased breath sounds. Absent: accessory muscle use, rales, respiratory distress, rhonchi, wheezes - Cardiovascular Cardiovascular exam: Present: RRR, +S1, +S2. Absent: diastolic murmur, gallop, rubs, systolic murmur - GI/Abdominal GI/Abdominal exam: Present: distended, firm, hyperactive bowel sounds, tenderness (Diffuse), no peritoneal signs - Extremities Exam Extremities exam: Present: pedal edema (2+ pitting bilaterally), warm, radial pulses palpable and symetrical. Absent: calf tenderness, cyanotic - Neurological Exam Neurological exam: Present: alert, CN II-XII intact, normal gait, oriented X3, no focal deficits, strengths equal and symetr throughout. Absent: pronater drift, facial droop, speech deficit - Skin Skin exam: Present: dry, intact, normal color, warm Internal Medicine: Result - Labs CBC & Chem 7: 02/23/17 01:44 02/23/17 01:44 Labs: Short CBC 02/23/17 Range/Units 01:44 WBC 11.4 H (4.3-11.1) K/mcL Hgb 12.2 (11.5-15.4) g/dL Hct 39.0 (35.3-44.9) % Plt Count 338 (140-400) K/mcL Neutrophils # 8.4 (1.6-8.9) K/mcL BMP 02/23/17 01:44 Sodium 137 Potassium 4.0 Chloride 91 L Carbon Dioxide 36 H BUN 20 Creatinine 0.88 Glucose 295 H Calcium 10.3 Cardiac Enzymes 02/22/17 02/23/17 Range/Units 19:59 01:44 Troponin I 0.01 0.00 (0-0.03) ng/mL - ABG Interpretation ABG results: PT/INR, D-dimer PT 14.8 Seconds (9.4-12.1) H 02/22/17 14:09 D-Dimer 2201 ng/mLFEU (0-500) H 02/22/17 14:09 - Impressions Impressions Abdomen Ultrasound 02/22/17 18:30 IMPRESSION: 1. No ascites identified. D/ / Dallin Tabor MD / Dallin Tabor MD Interpreting Provider: Dallin Tabor MD Abdomen/Pelvis CT 02/23/17 08:00 IMPRESSION: 1. Left renal cystic lesion with possible solid component. Recommend contrast enhanced CT to further evaluate this finding 2. Large amount of stool throughout the colon should be correlated with any history of constipation. D/ / Dagoberto Thomason MD / Dagoberto Thomason MD Interpreting Provider: Dagoberto Thomason MD Consult Discharge Plan - Plan Referrals: Kaz Merritt DO [Primary Care Provider] - 02/27/17 2:15 pm
[2017-02-23] MEDS ORDERED: Bisacodyl 10 MG RECTAL SUPPOSITORY RC PRN (17:44)
[2017-02-23] MEDS ORDERED: Milk and Molasses Enema 200 ML RC ONE (17:45)
[2017-02-23] MEDS ORDERED: Insulin DETEMIR 100 UNIT/ML X5UNITS SQ SCH (21:00)
[2017-02-23] MEDS ORDERED: Insulin Regular, Human 100 UNIT/ML SQ ONE (21:07)
[2017-02-23] MEDS ORDERED: Insulin LISPRO 300 UNITS/3 ML VIAL SQ ONE (21:15)
[2017-02-24 04:41] LABS: Basophils # 0.1 K/mcL (0.0-0.2); Basophils % 0.7 %; Eosinophils # 0.5 K/mcL (0.0-0.6); Eosinophils % 4.2 %; Hematocrit 37.1 % (35.3-44.9); Hemoglobin 11.8 g/dL (11.5-15.4); Lymphocytes # 1.4 K/mcL (0.6-4.6); Lymphocytes % 12.9 %; Mean Corpuscular HGB Conc 31.8 g/dL (31.6-35.5); Mean Corpuscular Hemoglobin 28.4 pg (28.0-33.3); Mean Corpuscular Volume 89.4 fL (83.0-100.0); Mean Platelet Volume 10.7 fL (9.4-12.4); Monocytes # 1.4 K/mcL (0.0-1.3); Monocytes % 12.3 %; Neutrophils # 7.6 K/mcL (1.6-8.9); Platelet Count 334 K/mcL (140-400); Red Blood Count 4.15 M/mcL (3.82-4.97); Segmented Neutrophils % 67.9 %
[2017-02-24 04:59] LABS: BUN/Creatinine Ratio 25 (6-26); Blood Urea Nitrogen 20 mg/dL (7-20); Calcium 9.2 mg/dL (8.6-10.8); Carbon Dioxide 36 mEq/L (19-29); Chloride 90 mEq/L (98-109); Glucose 337 mg/dL (70-99); Osmolality,Calculated 294 (280-300); Potassium 4.1 mEq/L (3.5-4.5); Sodium 134 mEq/L (136-145); eGFR For African Americans > 60 (> 60); eGFR For Non-African Americans > 60 (> 60)
--- NOTE | 2017-02-24 07:07 | Electrocardiograph Report ---
[place] [id number] Test Date: 2017-02-22 Pat Name: Mima Welch Department: 104 Room: 3B21 Gender: F [employer]: LEVY : 1955 Requested By: Ricky Maher Order Number: [id number] Reading MD: Luis Puckett MD Measurements Intervals Lewis Rate: 96 P: 40 WA: 165 QRS: -28 QRSD: 92 T: 20 QT: 348 QTc: 401 Interpretive Statements SINUS RHYTHM Poor R wave progression Electronically Signed On 02-24-2017 7:05:59 EDT by Luis Puckett MD
[2017-02-24] MEDS: *HR* OxyCODONE Immed Rel 5 MG TABLET PO SCH ×3 (08:24→20:38)
[2017-02-24] MEDS: *HR* Morphine Sulfate SR (12 HR) 30 MG TABLET.ER PO SCH ×2 (08:25→20:38)
[2017-02-24] MEDS: hydroCHLOROthiazide 25 MG TABLET PO SCH (08:25)
[2017-02-24] MEDS: BuPROPion SR (12 HR) 100 MG TABLET PO SCH (08:25)
[2017-02-24] MEDS: Furosemide 40 MG/4 ML VIAL IVP SCH ×2 (08:26→17:34)
[2017-02-24] MEDS: Insulin LISPRO 300 UNITS/3 ML VIAL SQ SCH ×4 (08:27→20:40)
[2017-02-24] MEDS: *HR* Enoxaparin 40 MG/0.4 ML SYRINGE SQ SCH (08:28)
[2017-02-24] MEDS: (Dexlansoprazole [Dexilant] 60 MG) PO SCH (08:37)
[2017-02-24] MEDS: (Lubiprostone [Amitiza] 8 MCG) PO SCH ×2 (08:37→20:43)
[2017-02-24] MEDS: Insulin DETEMIR 100 UNIT/ML X5UNITS SQ SCH ×2 (10:29→20:40)
[2017-02-24] MEDS ORDERED: Milk and Molasses Enema 200 ML RC ONE (14:47)
--- NOTE | 2017-02-24 18:18 | Internal Med Progress Note ---
Date of Encounter: 02/24/17 Time of Encounter: 10:30 (1400 and 1730) - Assessment and plan (1) Abdominal distension Current Visit: Yes Status: Acute Assessment and plan: Because of her abdominal distention at this time appears to be related to severe constipation. No ascites identified on imaging. Large amount of stool present on abdominal CT. Patient also had bilateral renal cysts which she states are chronic and she has been told that they are benign. Regarding her diastolic heart failure, she states that her current pedal edema slightly improved from her baseline and it does not appear as if this is an acute exacerbation. She has been given multiple enemas and laxatives and has had several bowel movements but repeat abdominal x-ray today revealing continued constipation. Patient stating when she has had to have colonoscopies in the past, that even when she takes double the amount of bowel prep, that she is still unable to be completely cleaned out. We will continue enemas and stool softeners with serial Abdominal xrays. Patient is on heavy narcotics chronically, she needs a much better bowel regimen. We will initiate this bowel regimen while she is admitted and continue to treat for her severe constipation. She is only on Amitiza for her bowel regimen which is completely ineffective for her. Will increase her bowel regimen and have her follow up outpatient with GI. ITS Impressions Chest X-Ray 02/22/17 14:02 IMPRESSION: Findings suggest congestive heart failure D/ / Scott Maravilla MD / Scott Maravilla MD Interpreting Provider: Scott Maravilla MD Chest CTA 02/22/17 15:40 IMPRESSION: 1. No pulmonary embolus. 2. No acute cardiopulmonary disease. 3. Right base scarring with elevation of the right hemidiaphragm. 4. Prominent upper abdominal lymph nodes, partially visualized. D/ / 02/22/2017 16:14:22 Betina Bell MD / yusra Interpreting Provider: Betina Bell MD Abdomen Ultrasound 02/22/17 18:30 IMPRESSION: 1. No ascites identified. D/ / Dallin Tabor MD / Dallin Tabor MD Interpreting Provider: Dallin Tabor MD Abdomen/Pelvis CT 02/23/17 08:00 IMPRESSION: 1. Left renal cystic lesion with possible solid component. Recommend contrast enhanced CT to further evaluate this finding 2. Large amount of stool throughout the colon should be correlated with any history of constipation. D/ / Dagoberto Thomason MD / Dagoberto Thomason MD Interpreting Provider: Dagoberto Thomason MD Lower extremity venous duplex impressions: Normal bilateral lower extremity deep and superficial venous exam. (2) Congestive heart failure Current Visit: Yes Status: Acute Assessment and plan: Acute on chronic diastolic heart failure. Echocardiogram revealing ejection fraction of 65% with moderate diastolic dysfunction. She is on diuretics at home. While she has abdominal distention and lower extremity edema, she appears euvolemic on examination and consistent with her baseline. She has 2+ pitting edema but she states this is normal for her and is actually improved from her baseline. Her abdominal distention has been worked up and suspected is secondary to severe constipation. Echocardiogram impressions: LVEF 65%. Normal LV chamber size, wall thickness and function. Moderate left ventricular diastolic dysfunction. Grossly normal right ventricular structure and function. No evidence of pulmonary hypertension identified. No significant family dysfunction. Qualifiers: Congestive heart failure type: diastolic Congestive heart failure chronicity: acute on chronic Qualified Code(s): I50.33 - Acute on chronic diastolic (congestive) heart failure (3) Swelling of lower extremity Current Visit: Yes Status: Chronic Assessment and plan: Acute on chronic. Currently with 2+ pitting edema bilaterally. Patient family state that this is improved from her baseline and states it typically by the end of the day, her swelling to her lower legs becomes severe every night. We will continue to diurese and monitor. (4) Constipation Current Visit: Yes Status: Acute Assessment and plan: Acute on chronic and likely secondary to large amount of pain medication. She is on Amitiza, but this does not work for her. Patient states that she has to do with chronic, severe constipation and has to use enemas frequently at home. We will change her by mouth bowel regimen have a follow-up outpatient with GI. Of note, GI unavailable for consultation due to provider unavailability. Qualifiers: Constipation type: drug induced constipation Qualified Code(s): K59.03 - Drug induced constipation (5) Chronic pain Current Visit: Yes Status: Chronic Assessment and plan: Home pain meds continued. Pain is currently controlled. (6) Tobacco abuse Current Visit: Yes Status: Chronic Assessment and plan: Declines counseling at this time, nicotine patch. (7) Type 2 diabetes mellitus Current Visit: Yes Status: Chronic Assessment and plan: Despite having a good A1c of 7.3%, her glucose is not well controlled. She fluctuates between hypoglycemia and hyperglycemia. She has had several hypoglycemic episodes at home though none recently. During her first day of admission, she became hypoglycemic despite her basal insulin being decreased. Throughout the next day, she became hyperglycemic and she continues to be hyperglycemic at this time. We will continue to monitor closely. She is currently refusing to take our Lantus and instead taking her home Lantus equivalent. We will continue to trend and lower her glucose safely. She is slowly starting to eat more, will adjust insulin levels accordingly. Qualifiers: Diabetes mellitus complication status: with unspecified complications Diabetes mellitus teasel setter insulin use: with teasel setter use Qualified Code(s) : E11.8 - Type 2 diabetes mellitus with unspecified complications; Z79.4 - [facility] (current) use of insulin (8) Hypertension Current Visit: Yes Status: Chronic Assessment and plan: Controlled, will continue to monitor Qualifiers: Hypertension type: essential hypertension Qualified Code(s): I10 - Essential (primary) hypertension (9) DVT prophylaxis Current Visit: Yes Status: Acute Assessment and plan: Subcutaneous Lovenox ordered (10) Morbid obesity with BMI of 40.0-44.9, adult Current Visit: Yes Status: Chronic - Subjective Interval history: Patient seen and examined throughout the day. Patient has been conversing with her today. She states that her bloating is better but she is still more bloated and less hungry than usual. She states that she has had several very large bowel movements. She still feels bloated but is starting to feel better. She is concerned about chronic constipation. - Constitutional Vitals: Temp Pulse Resp BP Pulse Ox 97.9 F 92 16 135/73 93 02/24/17 15:18 02/24/17 15:18 02/24/17 15:18 02/24/17 15:18 02/24/17 15:18 General appearance: Present: A&O X 3, morbidly obese, pleasant, no acute distress, answers questions appropriately - Head Head exam: Present: atraumatic, normocephalic - Eye Eye exam: Present: PERRL, conjuntiva pink, sclera anicteric Pupils: Present: PERRL - Neck Neck exam general surgery: Present: supple, trachea midline. Absent: lymphadenopathy - Respiratory Respiratory exam: Present: decreased breath sounds. Absent: accessory muscle use, rales, respiratory distress, rhonchi, wheezes - Cardiovascular Cardiovascular exam: Present: RRR, +S1, +S2. Absent: diastolic murmur, gallop, rubs, systolic murmur - GI/Abdominal GI/Abdominal exam: Present: distended, hyperactive bowel sounds, soft, tenderness (diffuse), no peritoneal signs - Extremities Exam Extremities exam: Present: pedal edema (nonpitting), warm, radial pulses palpable and symetrical. Absent: calf tenderness, cyanotic - Neurological Exam Neurological exam: Present: alert, CN II-XII intact, oriented X3, no focal deficits, strengths equal and symetr throughout. Absent: pronater drift, facial droop, speech deficit - Skin Skin exam: Present: dry, intact, pallor, warm Internal Medicine: Result - Labs CBC & Chem 7: 02/24/17 03:29 02/24/17 03:29 Labs: Short CBC 02/24/17 Range/Units 03:29 WBC 11.2 H (4.3-11.1) K/mcL Hgb 11.8 (11.5-15.4) g/dL Hct 37.1 (35.3-44.9) % Plt Count 334 (140-400) K/mcL Neutrophils # 7.6 (1.6-8.9) K/mcL BMP 02/24/17 03:29 Sodium 134 L Potassium 4.1 Chloride 90 L Carbon Dioxide 36 H BUN 20 Creatinine 0.79 Glucose 337 H Calcium 9.2 - ABG Interpretation ABG results: PT/INR, D-dimer PT 14.8 Seconds (9.4-12.1) H 02/22/17 14:09 D-Dimer 2201 ng/mLFEU (0-500) H 02/22/17 14:09 - Impressions Impressions Chest/Abdomen X-ray 02/24/17 09:04 IMPRESSION: No evidence of bowel obstruction or free air. Findings suggesting constipation. No acute focal process in the lungs. D/ / Miles Webber MD / Miles Webber MD Interpreting Provider: Miles Webber MD Consult Discharge Plan - Plan Referrals: Kaz Merritt DO [Primary Care Provider] - 02/27/17 2:15 pm
[2017-02-24] MEDS: Sennosides/Docusate Sodium TABLET PO SCH (20:39)
[2017-02-24] MEDS: Baclofen 10 MG TABLET PO PRN (20:53)
--- NOTE | 2017-02-24 22:52 | Event Note ---
Date of Encounter: 02/24/17 Time of Encounter: 22:47 Called by RN stating patient just gave herself 80 units of Humalog insulin from her home supply within the last hour (50 units, then 30 units) due to high glucose readings. Per RN, patient was upset that she was not on her home insulin regimen, became worried about high glucose readings, and self-injected her home insulin as above AFTER she received the prescribed insulin from her hospital orders. I asked RN to take her home supply away for now -- to be returned upon discharge. I am ordering hourly glucose checks for now to monitor for hypoglycemia. Once her glucose levels have stabilized, we will adjust her insulin dosing accordingly.
[2017-02-25] MEDS: Nicotine 21 MG PATCH.TD24 TD SCH ×2 (00:32→07:36)
[2017-02-25] MEDS: *HR* Enoxaparin 40 MG/0.4 ML SYRINGE SQ SCH (06:00)
[2017-02-25] MEDS: Insulin LISPRO 300 UNITS/3 ML VIAL SQ SCH ×3 (07:33→16:44)
[2017-02-25] MEDS: Furosemide 40 MG/4 ML VIAL IVP SCH (07:34)
[2017-02-25] MEDS: hydroCHLOROthiazide 25 MG TABLET PO SCH (07:34)
[2017-02-25] MEDS: BuPROPion SR (12 HR) 100 MG TABLET PO SCH (07:35)
[2017-02-25] MEDS: *HR* OxyCODONE Immed Rel 5 MG TABLET PO SCH ×2 (07:36→14:31)
[2017-02-25] MEDS: Sennosides/Docusate Sodium TABLET PO SCH (07:36)
[2017-02-25] MEDS: *HR* Morphine Sulfate SR (12 HR) 30 MG TABLET.ER PO SCH (07:36)
[2017-02-25] MEDS: (Dexlansoprazole [Dexilant] 60 MG) PO SCH (07:44)
[2017-02-25] MEDS: (Lubiprostone [Amitiza] 8 MCG) PO SCH (07:48)
[2017-02-25] MEDS: Insulin DETEMIR 100 UNIT/ML X5UNITS SQ SCH (09:09)
[2017-02-25] MEDS: Baclofen 10 MG TABLET PO PRN (09:14)
[2017-02-25] MEDS ORDERED: Milk and Molasses Enema 200 ML RC ONE (15:16)
[2017-02-25 15:30] VITALS: BP 169/67
--- NOTE | 2017-02-25 15:44 | Discharge Summary ---
Date of Encounter: 02/25/17 Time of Encounter: 12:30 - Discharge Diagnosis (1) Abdominal distension Priority: Primary Status: Acute Comments: Improved greatly throughout this admission. Her abdominal distention appears to be related to severe constipation likely OIC. No ascites identified on imaging. Large amount of stool present on abdominal CT and after several enemas - both fleets and milk of molasses, and several large bowel movements, repeat imaging revealing only moderate stool which is an improvement for her. Will give 2 more enemas prior to discharge. She's been started on a proper OIC prevention bowel regimen (2) Congestive heart failure Priority: Primary Status: Acute Comments: Acute on chronic diastolic heart failure. Echocardiogram revealing ejection fraction of 65% with moderate diastolic dysfunction. She is on diuretics at home. While she has abdominal distention and lower extremity edema, she appears euvolemic on examination and consistent with her baseline. She has 2+ pitting edema but she states this is normal for her and is actually improved from her baseline. Her abdominal distention has been worked up and suspected is secondary to severe constipation. She readily admits that she does not follow her fluid restricted diet- will increase her Furosemide at home. Echocardiogram impressions: LVEF 65%. Normal LV chamber size, wall thickness and function. Moderate left ventricular diastolic dysfunction. Grossly normal right ventricular structure and function. No evidence of pulmonary hypertension identified. No significant family dysfunction. Qualifiers: Congestive heart failure type: diastolic Congestive heart failure chronicity: acute on chronic Qualified Code(s): I50.33 - Acute on chronic diastolic (congestive) heart failure (3) Swelling of lower extremity Priority: Secondary Status: Chronic (4) Constipation Priority: Primary Status: Chronic Qualifiers: Constipation type: drug induced constipation Qualified Code(s): K59.03 - Drug induced constipation (5) Chronic pain Priority: Secondary Status: Chronic Comments: pain controlled with home regimen (6) Tobacco abuse Priority: Secondary Status: Chronic Comments: declines counseling (7) Type 2 diabetes mellitus Priority: Secondary Status: Chronic Comments: Despite having a good A1c of 7.3%, her glucose is not well controlled. She fluctuates between hypoglycemia and hyperglycemia. She has had several hypoglycemic episodes at home though none recently. recommend continued education and followup outpatient Qualifiers: Diabetes mellitus complication status: with unspecified complications Diabetes mellitus jail insulin use: with jail use Qualified Code(s) : E11.8 - Type 2 diabetes mellitus with unspecified complications; Z79.4 - care home (current) use of insulin (8) Hypertension Priority: Secondary Status: Chronic Comments: controlled; followup outpatient. Qualifiers: Hypertension type: essential hypertension Qualified Code(s): I10 - Essential (primary) hypertension (9) DVT prophylaxis Priority: Primary Status: Acute Comments: Subcutaneous Lovenox while admitted (10) Morbid obesity with BMI of 40.0-44.9, adult Priority: Secondary Status: Chronic - Discharge Medications Prescriptions: Ondansetron ODT [Zofran ODT] 4 mg SL Q8HR PRN #12 PRN Reason: Nausea And Vomiting Docusate [Colace] 100 mg PO BID #60 capsule Furosemide [Lasix] 40 mg PO BID #60 Lactobacillus [Culturelle] 1 each PO BID #60 Lactulose [Kristalose] 20 gm PO DAILY PRN #30 packet PRN Reason: Constipation Sennosides [Senna] 17.2 mg PO HS #60 tablet Home Medications: Baclofen 20 mg PO TID PRN 02/29/16 [History] Dexlansoprazole [Dexilant] 60 mg PO DAILY 02/29/16 [History] Ibuprofen [Motrin] 600 mg PO Q6H PRN 02/29/16 [History] Insulin Glargine,Hum.rec.anlog [Lantus Solostar] 70 unit SQ BID 02/29/16 [ History] Insulin LISPRO [Humalog Kwikpen U-100] 0 unit SQ TIDWM 02/29/16 [History] Linagliptin/Metformin HCl [Jentadueto 2.5 mg-1000 mg Tab] 1 tab PO BID 02/29/16 [History] Losartan Potassium [Cozaar] 50 mg PO DAILY 02/29/16 [History] Multivitamin [Multi-Day Vitamins] 1 tab PO DAILY 02/29/16 [History] Nystatin Cream [Mycostatin Cream] 1 appl TP BID PRN 02/29/16 [History] Oxycodone HCl [Oxaydo] 5 mg PO TID 02/29/16 [History] Potassium Chloride [K-Tab ER] 20 meq PO DAILY 02/29/16 [History] diazePAM [Valium] 5 mg PO BID PRN 02/29/16 [History] hydroCHLOROthiazide [Hydrochlorothiazide] 25 mg PO DAILY 02/29/16 [History] Glucagon,Human Recombinant [Glucagon Emergency Kit] 1 mg IJ ONCE PRN 03/28/16 [ History] FLUoxetine HCl [Prozac] 20 mg PO DAILY 02/22/17 [History] Lubiprostone [Amitiza] 8 mcg PO BID 02/22/17 [History] Mecobal/Levomefolat Ca/B6 Phos [Foltanx Tablet] 1 tab PO BID 02/22/17 [History] Modafinil [Provigil] 100 mg PO QAM 02/22/17 [History] Morphine Sulfate SR (12 HR) [MS Contin] 30 mg PO QAM 02/22/17 [History] Morphine Sulfate SR (12 HR) [MS Contin] 60 mg PO QPM 02/22/17 [History] buPROPion HCl [Bupropion HCl ER] 200 mg PO DAILY 02/22/17 [History] Docusate [Colace] 100 mg PO BID #60 capsule 02/25/17 [Rx] Furosemide [Lasix] 40 mg PO BID #60 02/25/17 [Rx] Lactobacillus [Culturelle] 1 each PO BID #60 02/25/17 [Rx] Lactulose [Kristalose] 20 gm PO DAILY PRN #30 packet 02/25/17 [Rx] Ondansetron ODT [Zofran ODT] 4 mg SL Q8HR PRN #12 02/25/17 [Rx] Sennosides [Senna] 17.2 mg PO HS #60 tablet 02/25/17 [Rx] Allergies/Adverse Reactions: Allergies orange Allergy (Verified 02/29/16 19:08) Hives Pineapple Allergy (Verified 02/29/16 19:08) Hives Sulfa (Sulfonamide Antibiotics) Allergy (Verified 02/29/16 18:57) Rash wheat Allergy (Verified 02/29/16 19:08) Rash Procedures/tests Complete & Pending: Procedures Performed prior 72 hours Category Date Time Status CT abd pelvis wo no iv no oral [CT] Routine Cat Scan 02/23/17 08:00 Completed US abdomen limited [US] Routine Exams 02/22/17 18:30 Completed EV echocardiogram Routine Y 02/23/17 17:17 Completed EV venous imaging LE BI Routine Y 02/23/17 17:11 Completed Date of admission: 02/22/17 15:56 Primary care physician: Sofía Otoole Discharging clinician: Susan Dong Anticipated date of discharge: 02/25/17 - Patient Status Disposition: Home, Self-Care Condition: Fair Functional capacity at discharge: independent ambulation Overall status at discharge: patient is progressing back to baseline - Discharge Instructions Follow Up With: Kaz Merritt DO [Primary Care Provider] - 02/27/17 2:15 pm Additional Instructions: Follow-up with primary care provider as scheduled - Diet and Activity Activity: increase activity as tolerated Diet: diabetic diet, low fat, low cholesterol (Fluid restriction 1.5 L per day.) , low salt diet Hospital course: Ms. Welch is a 62 year old female with past medical history of hypertension, diabetes, GERD, chronic back pain, fatty liver disease, anxiety/depression, morbid obesity, and tobacco abuse. Patient presented to the emergency department chief complaint of increasing bilateral lower extremity swelling, redness, shortness of breath, and intermittent chest pressure. Patient stating she has had swelling in both of her legs for quite some time but is noticed that had gotten worse over the past several days prior to presentation. Patient also reporting that her abdomen was significantly more distended and was causing her shortness of breath and a poor appetite. She denied any nausea , vomiting, or abdominal pain. Patient stating her chest pressure happens approximately once per week while at rest and lasts for approximately 5 minutes and is located in the middle of her chest and radiates up to her jaw. She denied headache, palpitations, cough, fever or dysuria. No ECG changes in the emergency department. BMP was negative. D-dimer was significantly elevated so chest CTA was obtained which ruled out a PE. Chest x-ray consistent with CHF. Patient was admitted to the hospitalist service for further evaluation and management. She was diuresed with IV furosemide. Abdominal ultrasound ruled out ascites. An abdominal pelvic CT revealed a large amount of stool throughout the colon. Abdominal pelvic CT also revealed renal cysts but the patient states that these are benign and she has had them evaluated in the past. In further discussion with the patient, she has been on high doses of narcotics since the late and she has never been on and opioid-induced constipation bowel regimen. She states that she gets severe constipation and has to use multiple enemas at home on a regular basis. She is on Amitiza but this is been ineffective for her. Lower extremity Doppler negative for DVT. Echocardiogram revealing an ejection fraction of 65% and moderate diastolic dysfunction. Consistent with acute on chronic diastolic heart failure. Patient has been on diuretics for quite some time as this is likely not a new diagnosis for her. She is aware that she is supposed to limit her fluid intake at home but states she does not do this. Because of her severe abdominal distention was likely related to her severe constipation. She was treated with numerous enemas and laxatives and she had several bowel movements while admitted and repeat imaging showing improvement in her constipation though she remained with moderate constipation. Her abdominal distention lessened and she was able to start eating small amounts again. No vomiting or nausea. While admitted, patient had 2+ pitting edema bilaterally but she states this is improved from her baseline. On day of discharge, she denied shortness of breath above her norm. Regarding her diabetes, while her A1c is good at 7.3%, her glucose is not well controlled. She fluctuates between hypoglycemia and hyperglycemia. Her family reports that she has had several hypoglycemic episodes at home but none recently. She had hypoglycemic episodes while admitted here because she decided to take her own insulin after being told not to do so by staff. Patient was admitted and observed over the course of 3 nights and on day of discharge, she stated she was essentially back to her baseline. She was started on an appropriate bowel regimen given her severe OIC. Recommend close outpatient follow-up with her primary care provider and likely referral to GI regarding her chronic constipation. She states she has been dealing with severe constipation since the late . She was started on senna at bedtime, Colace during the day, lactulose as needed. She was also instructed to increased her physical activity level. She was also started on a probiotic because she states that the last time she had her bowels completely cleaned out, she developed issues with removal for normal intestinal ciro. Patient also states that she was only taking 40 mg of Lasix daily, she was prescribed to take 40 mg twice a day and this twice a day dosing was resumed upon discharge as the patient readily states that she is not compliant with her fluid restricted diet. She was discharged home in stable condition with close outpatient follow-up recommended. ITS Impressions Chest X-Ray 02/22/17 14:02 IMPRESSION: Findings suggest congestive heart failure D/ / Scott Maravilla MD / Scott Maravilla MD Interpreting Provider: Scott Maravilla MD Chest CTA 02/22/17 15:40 IMPRESSION: 1. No pulmonary embolus. 2. No acute cardiopulmonary disease. 3. Right base scarring with elevation of the right hemidiaphragm. 4. Prominent upper abdominal lymph nodes, partially visualized. D/ / 02/22/2017 16:14:22 Betina Bell MD / yusra Interpreting Provider: Betina Bell MD Abdomen Ultrasound 02/22/17 18:30 IMPRESSION: 1. No ascites identified. D/ / Dallin Tabor MD / Dallin Tabor MD Interpreting Provider: Dallin Tabor MD Abdomen/Pelvis CT 02/23/17 08:00 IMPRESSION: 1. Left renal cystic lesion with possible solid component. Recommend contrast enhanced CT to further evaluate this finding 2. Large amount of stool throughout the colon should be correlated with any history of constipation. D/ / Dagoberto Thomason MD / Dagoberto Thomason MD Interpreting Provider: Dagoberto Thomason MD Lower extremity venous duplex impressions: Normal bilateral lower extremity deep and superficial venous exam. Chest/Abdomen X-ray 02/24/17 09:04 IMPRESSION: No evidence of bowel obstruction or free air. Findings suggesting constipation. No acute focal process in the lungs. D/ / Miles Webber MD / Miles Webber MD Interpreting Provider: Miles Webber MD Chest/Abdomen X-ray 02/25/17 06:00 IMPRESSION: Moderate fecal loading of the colon. Right basilar atelectasis or pneumonitis. D/ / Yonatan Campbell MD / Yonatan Campbell MD Interpreting Provider: Yonatan Campbell MD Echocardiogram impressions: LVEF 65%. Normal LV chamber size, wall thickness and function. Moderate left ventricular diastolic dysfunction. Grossly normal right ventricular structure and function. No evidence of pulmonary hypertension identified. No significant family dysfunction. - Time Spent with Patient Total time spent providing and/or coordinating discharge services: - Constitutional Vitals: Temp Pulse Resp BP Pulse Ox 98.0 F 92 16 169/67 95 02/25/17 15:27 02/25/17 15:27 02/25/17 15:27 02/25/17 15:27 02/25/17 15:27 General appearance: Present: A&O X 3, morbidly obese, pleasant, no acute distress, answers questions appropriately - Head Head exam: Present: atraumatic, normocephalic - Eye Eye exam: Present: PERRL, conjuntiva pink, sclera anicteric Pupils: Present: PERRL - Neck Neck exam general surgery: Present: supple, trachea midline. Absent: lymphadenopathy - Respiratory Respiratory exam: Present: decreased breath sounds, wheezes. Absent: accessory muscle use, rales, respiratory distress, rhonchi - Cardiovascular Cardiovascular exam: Present: RRR, +S1, +S2. Absent: diastolic murmur, gallop, rubs, systolic murmur - GI/Abdominal GI/Abdominal exam: Present: distended (Soft), normal bowel sounds, soft, no peritoneal signs. Absent: tenderness - Extremities Exam Extremities exam: Present: pedal edema (2+ bilaterally, baseline for her), warm , radial pulses palpable and symetrical. Absent: calf tenderness, cyanotic - Neurological Exam Neurological exam: Present: alert, CN II-XII intact, normal gait, oriented X3, no focal deficits, strengths equal and symetr throughout. Absent: pronater drift, facial droop, speech deficit - Skin Skin exam: Present: dry, intact, normal color, warm
[2017-02-25] MEDS ORDERED: Lactobacillus 1 EACH CAP.SPRINK PO SCH (21:00)
== END 2017-02-25 18:01 | disposition home or self-care (01) ==
LOC: EMEROO 12:51 → 3BNU 12:51
PROVIDERS: ADMIT Internal Medicine; ATTEND Nurse Practitioner Family